=== PATIENT | female | born 1965 | race Caucasian/White ===

== ENCOUNTER 2016-11-01 16:57 | Emergency (ER) | payer OTHER ==
[~2016-11-01] VITALS: Ht 160 cm; Wt 59.9 kg
[~2016-11-01 16:57] MED LIST: PROBIOTIC1 EACH PO; VIT D; [UNRECOGNIZED DRUG - OTHER]
[2016-11-01 17:30] LABS: BASOPHILS # (AUTO) 0.1 /CMM (0.0-0.2); BASOPHILS % (AUTO) 1.8 % (0.0-2.0); EOSINOPHILS # (AUTO) 0.3 /CMM (0.0-0.7); EOSINOPHILS % (AUTO) 3.3 % (0.0-6.0); HEMATOCRIT 44 % (33-45); LYMPHOCYTES # (AUTO) 2.8 /CMM (0.8-4.8); LYMPHOCYTES % (AUTO) 33.4 % (20.0-44.0); MEAN CORPUSCULAR HEMOGLOBIN 30 PG (26.0-33.0); MEAN CORPUSCULAR HGB CONC 34 g/dl (31.0-36.0); MEAN CORPUSCULAR VOLUME 86 fL (82-100); MONOCYTES # (AUTO) 0.6 /CMM (0.1-1.30); MONOCYTES % (AUTO) 7.7 % (2.0-12.0); NEUTROPHILS # (AUTO) 4.4 /CMM (1.8-8.9); NEUTROPHILS % (AUTO) 53.8 % (43.0-81.0); PLATELET COUNT (AUTO) 225 /CMM (150-450); RDW COEFFICIENT OF VARIATION 12.3 (11.5-15.0); RED BLOOD CELL COUNT(AUTO) 5.06 MIL/uL (4.0-5.2); WHITE BLOOD COUNT (AUTO) 8.3 K/uL (4.3-11.0)
[2016-11-01 17:39] LABS: CALCIUM, SERUM 9.3 mg/dL (8.5-10.1); CARBON DIOXIDE 26 mmol/L (21-32); CHLORIDE 102 mmol/L (98-107); CREATININE 0.9 mg/dL (0.6-1.3); GFR 66 mL/min (>60); GLUCOSE 90 mg/dL (74-106); POTASSIUM 3.5 mmol/L (3.5-5.1); SODIUM SERUM 137 mmol/L (136-145); UREA NITROGEN, BLOOD 17 mg/dL (7-18)
[2016-11-01 17:49] LABS: TROPONIN I < 0.017 ng/mL (0.00-0.056)
[2016-11-01 18:02] LABS: PROTHROMBIN TIME 10.7 SECS (9.5-12.7)
--- NOTE | 2016-11-01 18:24 | NUR ---
patient bib self, cc: chest pain, for 2 hours [employer] s/p will be seen by md at bedside, no cardiac history, no respiratory distress. will continue to monitor closely.
[2016-11-01] MEDS ORDERED: IOHEXOL-350 100 ML VIAL IV ONE (19:15)
[2016-11-01] MEDS ORDERED: IV NS 0.9% 250 ML IV ONE (19:15)
--- NOTE | 2016-11-01 19:22 | NUR ---
pt transported to radiology for ct pulmonary angiogram.
--- NOTE | 2016-11-01 21:21 | NUR ---
IV removed. Catheter intact and site benign. Pressure and 4x4 applied to site. No bleeding noted. Patient discharged to home in stable condition. Written and verbal after care instructions given. Patient verbalizes understanding of instruction. ambulatory with a steady gait noted. pt remains pain free at this time.
[2016-11-01 21:22] VITALS: BP 109/68
== END 2016-11-01 21:23 | disposition home or self-care (01) ==
LOC: ER 16:59
DX: R07.1 Chest pain on breathing (principal); R79.1 Abnormal coagulation profile
CPT/HCPCS: 36415; 71010-TC; 80048-TC; 84484-TC; 85025-TC; 85378-TC; 85730-TC; A4606; J7050; Q9967; Z7610